=== PATIENT | male | born 1975 | race Hispanic/Latino ===

== ENCOUNTER 2017-07-08 22:52 | Emergency (ER) | payer SELFPAY ==
[2017-07-08] MEDS ORDERED: Mag-Al 1200 mg/1200 mg/30 ML UDCUP ONE (23:35)
[2017-07-08] MEDS ORDERED: Famotidine 20 MG TAB ONE (23:35)
[2017-07-08] MEDS ORDERED: Lidocaine Viscous Sol 2% 15 ml UD Cup ONE (23:35)
[2017-07-08 23:57] LABS: #Eosinphils 0.1 thou/uL (0.0-0.7); #Lymphocytes 1.1 thou/uL (1.20-3.40); #Monocytes 0.5 thou/uL (0.11-0.59); #Neutrophils 2.3 thou/uL (1.40-6.50); %Basophils 0.4 % (0.0-1.0); %Eosinophils 1.6 % (0.0-10.0); %Lymphocytes 27.5 % (21.0-51.0); %Monocytes 12.1 % (0.0-10.0); Hematocrit 46.3 % (42.0-52.0); Mean Platelet Volume 7.5 fL (7.4-10.4); Red Blood Cell (RBC) Count 4.98 mill/uL (4.70-6.10); White Blood Cell (WBC) Count 3.9 thou/uL (4.8-10.8)
[2017-07-09 00:09] LABS: ALT (SGPT) 73 U/L (8-55); AST (SGOT) 46 U/L (5-34); Alkaline Phosphatase 120 U/L (40-150); Anion Gap 15 mmol/L (10-20); BUN (Urea Nitrogen) 5 mg/dL (8.9-20.6); Bilirubin, Total 0.6 mg/dL (0.2-1.2); Calc. Creatinine Clearance 0 mL/min (70-130); Calcium 9.6 mg/dL (7.8-10.44); Carbon Dioxide 25 mmol/L (22-29); Chloride 100 mmol/L (98-107); Estimated GFR-MDRD Greater than 90; Globulin 3.6 g/dL (2.4-3.5); Magnesium 2.2 mg/dL (1.6-2.6)
[2017-07-09 00:10] LABS: Troponin I Less than 0.010 ng/mL (< 0.028)
--- NOTE | 2017-07-09 07:58 | RAD ---
PORTABLE CHEST: Date: 07/08/17 HISTORY: Chest pain. FINDINGS: Lung nuno are clear of infiltrate. No evidence of vascular congestion. Heart and mediastinum unrem arkable. Calcified granuloma in the right lower lung field is unchanged. IMPRESSION: No acute findings. POS: [facility]
== END 2017-07-09 00:33 | disposition home or self-care (01) ==
LOC: ERS 22:52
DX: K29.20 Alcoholic gastritis without bleeding (principal)
CPT/HCPCS: 71010; 80053; 82553; 83690; 83735; 84484; 85025; 93005; 96360

== ENCOUNTER 2018-01-19 12:11 | Observation (INO) | payer SELFPAY ==
[2018-01-19 12:48] LABS: #Lymphocytes 0.8 thou/uL (1.20-3.40); #Monocytes 0.3 thou/uL (0.11-0.59); #Neutrophils 3.9 thou/uL (1.40-6.50); %Basophils 0.6 % (0.0-1.0); %Eosinophils 0.4 % (0.0-10.0); %Lymphocytes 15.2 % (21.0-51.0); %Monocytes 6.5 % (0.0-10.0); %Neutrophils 77.3 % (42.0-75.0); Hemoglobin 14.7 g/dL (14.0-18.0); Mean Corpuscular HGB CONC 35.9 g/dL (32.0-36.0); Mean Corpuscular Hemoglobin 31.7 pg (27.0-31.0); Mean Corpuscular Volume 88.6 fl (80.0-94.0); Mean Platelet Volume 6.7 fL (7.4-10.4); Platelet Count 327 thou/uL (130-400); RBC Distribution Width 11.3 % (11.5-14.5); Red Blood Cell (RBC) Count 4.62 mill/uL (4.70-6.10)
[2018-01-19] MEDS ORDERED: Pantoprazole 40 MG VIAL ONE (12:48)
[2018-01-19] MEDS ORDERED: Lidocaine Viscous Sol 2% 15 ml UD Cup ONE (12:48)
[2018-01-19] MEDS ORDERED: Mag-Al 1200 mg/1200 mg/30 ML UDCUP ONE (12:48)
[2018-01-19] MEDS ORDERED: Ondansetron ODT 4 MG TAB ONE (12:51)
[2018-01-19 13:42] LABS: ALT (SGPT) 46 U/L (8-55); AST (SGOT) 30 U/L (5-34); Albumin 4.6 g/dL (3.5-5.0); Alkaline Phosphatase 102 U/L (40-150); Anion Gap 16 mmol/L (10-20); BUN (Urea Nitrogen) 5 mg/dL (8.9-20.6); Bilirubin, Total 0.8 mg/dL (0.2-1.2); Calc. Creatinine Clearance 0 mL/min (70-130); Calcium 8.4 mg/dL (7.8-10.44); Carbon Dioxide 23 mmol/L (22-29); Chloride 90 mmol/L (98-107); Estimated GFR-MDRD Greater than 90; Globulin 2.9 g/dL (2.4-3.5); Glucose 128 mg/dL (70-105); Lipase 16 U/L (8-78); Protein, Total 7.5 g/dL (6.0-8.3); Sodium 126 mmol/L (136-145)
[2018-01-19 13:46] LABS: Troponin I Less than 0.010 ng/mL (< 0.028)
[2018-01-19 13:52] LABS: CKMB 7.2 ng/mL (0-6.6); Potassium 2.8 mmol/L (3.5-5.1)
--- NOTE | 2018-01-19 14:34 | ULT ---
RIGHT UPPER QUADRANT ULTRASOUND: 01/19/2018 HISTORY: Right upper quadrant abdominal pain. Epigastric pain. FINDINGS: Limited visualized portions of the pancreas, the liver, visualized portions of the IVC, the gallbladd er, and the right kidney demonstrate a normal sonographic appearance. The right kidney measures 10 c m in length. The common duct measures 0.3 cm in diameter, which is within normal limits. IMPRESSION: Normal right upper quadrant ultrasound examination. No gallbladder calculi are seen, and the common duct is normal in caliber. POS: [facility]
--- NOTE | 2018-01-19 14:41 | RAD ---
PORTABLE AP CHEST XRAY: GERARD: 01/19/18. HISTORY: Epigastric abdominal pain and chest pain. COMPARISON: 11/08/16. FINDINGS: Cardiac silhouette and pulmonary vasculature are within normal limits. Calcified granuloma in the ri ght mid lung zone is again present. Lungs are otherwise clear. There has been no interval change fr om the prior study. IMPRESSION: No acute cardiopulmonary process. POS: [facility]
[2018-01-19] MEDS ORDERED: Potassium Chloride 20 MEQ TAB ONE (15:38)
[2018-01-19 16:01] LABS: Troponin I Less than 0.010 ng/mL (< 0.028)
[2018-01-19 17:15] LABS: Acetaminophen Less than 6.0 mcg/mL (10.0-30.0); Alcohol Less than 10 mg/dL (Less than 10); Salicylate Less than 8.0 mg/dL (15.0-30.0)
[2018-01-19] MEDS ORDERED: Acetaminophen 325 MG TAB PO PRN (18:37)
[2018-01-19] MEDS ORDERED: Ondansetron ODT 4 MG TAB PO PRN (18:37)
[2018-01-19] MEDS ORDERED: Senokot 8.6 MG TAB PO PRN (18:37)
[2018-01-19] MEDS ORDERED: Ondansetron HCl/PF 4 MG/2 ML Vial IVP PRN (18:37)
[2018-01-19] MEDS ORDERED: Acetaminophen 650 MG Suppository PR PRN (18:37)
[2018-01-19] MEDS ORDERED: Bisacodyl 5 MG TAB PO PRN (18:37)
[2018-01-19] MEDS ORDERED: Potassium Chloride 40 MEQ in Premix Bag 1 BAG IVPB SCH (18:45)
[2018-01-19] MEDS ORDERED: Multivitamins, Adult 10 ML, Folic Acid 1 MG, Thiamine HCl 100 MG in Dextrose 5 %-0.45 %... IV SCH (18:45)
[2018-01-19] MEDS ORDERED: Sodium Chloride 0.9% 1,000 ML IV SCH ×2 (18:45)
[2018-01-19] MEDS ORDERED: Diazepam 5 MG TAB PO PRN (18:51)
[2018-01-19] MEDS ORDERED: Potassium Chloride 40 MEQ in Sodium Chloride 0.9% 250 ML 250 ML IVPB SCH (19:00)
[2018-01-19] MEDS ORDERED: Diazepam 5 MG TAB PO SCH (19:00)
[2018-01-19 20:22] LABS: Troponin I Less than 0.010 ng/mL (< 0.028)
[2018-01-19 20:54] VITALS: BMI 39.6
--- NOTE | 2018-01-19 22:29 | HP ---
PRIMARY CARE PHYSICIAN: James aldana. CHIEF COMPLAINT: Abdominal pain. HISTORY OF PRESENT ILLNESS: This is a 42-year-old male with a known history of alcohol and cocaine abuse. He presented with a 1-day history of epigastric burning pain, radiating up into his c hest, pain happen after he drinks his typical 4 beers this morning. He took some ranitidine without improvement, so he came into the emergency room. In the ER, the patient was noted to have hyponatrem ia and hypokalemia. He was also dizzy upon standing, so [facility] The patient also does report that he threw up about four time this morning. This is not terribl y unusual for him in the mornings. No vomiting of blood. No other significant complaints. PAST MEDICAL HISTORY: Hypertension. PAST SURGICAL HISTORY: None. PSYCHIATRIC HISTORY: None. SOCIAL HISTORY: The patient denies tobacco use. He drinks about 4 beers and a couple of bottles of tequila per day, has done this for the last 15 years. He reports a history of cocaine use, last time was yesterday evening. FAMILY HISTORY: No significant family history of heart disease or other medical problems. ALLERGIES: No known drug allergies. MEDICATIONS: 1. Ranitidine 300 mg daily. 2. Lisinopril 5 mg daily, however, he does not take this regularly because he is worried that it mercedez ht interact with his drinking and cocaine use. REVIEW OF SYSTEMS: Constitutional: No fevers, no chills. Eyes: No double vision or blurred vision. ENT: No congestion, drainage or sore throat. Cardiovascular: See HPI. No palpitations or racing heart. Pulmonary: No coughing, wheezing or shortness of breath. Gastrointestinal: See HPI. No diarrhea or constipation. Genitourinary: No dysuria or hematuria. Musculoskeletal: He has some aches in his bilateral thighs, otherwise no other musculoskeletal compl aints. Skin: No rashes or lesions noted. Neurologic: No numbness, tingling or focal weakness. PHYSICAL EXAMINATION: VITAL SIGNS: Blood pressure 121/84, pulse 77, respirations 16, O2 sat 97% on room air, temperature 9 7.8. GENERAL: This is a well-developed male, in no apparent distress. HEENT: Pupils equal, round, and reactive to light. Extraocular movements intact. Oropharynx clear without lesions, erythema or exudate. NECK: Supple, no lymphadenopathy, no thyroid nodules. NEUROLOGIC: No JVD. HEART: Regular rate and rhythm. No murmurs, rubs or gallops. LUNGS: Clear to auscultation bilaterally. No wheezes, crackles or rhonchi. ABDOMEN: Soft, diffuse mild tenderness to palpation, a little bit worse in the midepigastric region. No masses. No guarding or rebound tenderness. No hepatosplenomegaly. Normoactive bowel sounds. EXTREMITIES: No clubbing, cyanosis or edema. SKIN: No rashes or other lesions noted. NEUROLOGIC: He has intact strength in all extremities. Intact reflexes in all extremities. No faci al droop. LABORATORY DATA: CBC grossly within normal limits. Complete metabolic panel was notable for sodium of 126, potassium of 2.8, chloride 90, BUN of 5, and a glucose of 128. The rest is normal. His CK-M B initially was 7.2. Troponin has been negative x2. Serum toxicology screen shows a negative salicy late, negative acetaminophen, negative alcohol in the blood. IMAGING: I did review the chest x-ray done in the emergency room along with the radiologist's report shows normal heart size, no infiltrates, no acute cardiopulmonary process. Abdominal ultrasound rep orted normal in the right upper quadrant. No gallbladder calculi seen. Common duct, normal in calib er. EKG done in the emergency room shows a normal sinus rhythm at 88 beats per minute, does have an incomplete right bundle-branch block, but no ST segment changes or T-wave abnormalities. ASSESSMENT: 1. Abdominal pain. This is likely gastritis related to patient's alcohol abuse. He is at high risk for heart disease as well. Given his cocaine use; however, troponins are negative thus far. He had no EKG changes. I will start patient on Protonix daily. We will also give him Zofran as needed for nausea and will trend his cardiac markers to make sure that they did not go up. We will also put regina espinoza on telemetry overnight. 2. Hyponatremia, likely related to alcohol abuse. We will start patient on banana bag with normal s donn in it running in 100 overnight. We will encourage good diet and will recheck in the morning. 3. Hypokalemia. The patient was given a dose of potassium chloride orally in the emergency room. W e will go ahead and run an IV 40 mEq bag as well overnight and then we will start him on twice a day potassium tomorrow. We will recheck the level in the morning. Also, check a magnesium level to make sure he is not low in magnesium also. 4. Alcohol abuse. Th patient is a heavy alcohol drinker. We will put him on ASE protocol as he genoveva l likely need treatment overnight. 5. Deep venous thrombosis prophylaxis. The patient is on Lovenox and sequential compression devices .
[2018-01-19 22:42] LABS: Troponin I Less than 0.010 ng/mL (< 0.028)
[2018-01-20] MEDS ORDERED: Diazepam 5 MG TAB PO PRN (04:00)
[2018-01-20 04:30] LABS: #Eosinphils 0.1 thou/uL (0.0-0.7); #Lymphocytes 1.1 thou/uL (1.20-3.40); #Monocytes 0.4 thou/uL (0.11-0.59); #Neutrophils 2.1 thou/uL (1.40-6.50); %Basophils 0.4 % (0.0-1.0); %Eosinophils 2.8 % (0.0-10.0); %Lymphocytes 29.3 % (21.0-51.0); %Monocytes 11.4 % (0.0-10.0); %Neutrophils 56.1 % (42.0-75.0); Hemoglobin 14.5 g/dL (14.0-18.0); Mean Corpuscular HGB CONC 34.3 g/dL (32.0-36.0); Mean Corpuscular Hemoglobin 31.7 pg (27.0-31.0); Mean Corpuscular Volume 92.3 fl (80.0-94.0); Mean Platelet Volume 7.1 fL (7.4-10.4); Platelet Count 305 thou/uL (130-400); RBC Distribution Width 11.8 % (11.5-14.5); Red Blood Cell (RBC) Count 4.59 mill/uL (4.70-6.10); White Blood Cell (WBC) Count 3.7 thou/uL (4.8-10.8)
[2018-01-20 04:48] LABS: Anion Gap 9 mmol/L (10-20); BUN (Urea Nitrogen) 8 mg/dL (8.9-20.6); Calc. Creatinine Clearance 104 mL/min (70-130); Calcium 8.5 mg/dL (7.8-10.44); Carbon Dioxide 22 mmol/L (22-29); Chloride 109 mmol/L (98-107); Estimated GFR-MDRD Greater than 90; Glucose 103 mg/dL (70-105); Sodium 136 mmol/L (136-145)
[2018-01-20] MEDS ORDERED: Potassium Chloride 20 MEQ TAB PO SCH (08:00)
[2018-01-20] MEDS ORDERED: Enoxaparin Sodium 40 MG/0.4 ML SYRINGE SC SCH (09:00)
[2018-01-20] MEDS ORDERED: Magnesium Oxide 400 MG TAB PO SCH (09:00)
[2018-01-20 11:57] VITALS: BP 128/65; TEMP 98.1
--- NOTE | 2018-01-20 15:26 | DIS ---
DATE OF ADMISSION: 01/19/2018 DATE OF DISCHARGE: 01/20/2018 DISCHARGE DIAGNOSES: 1. Acute gastritis secondary to alcohol abuse. 2. Alcohol abuse. 3. Hyponatremia, improved. 4. Hypokalemia, resolved. CONSULTATIONS: None. PERTINENT LABORATORY DATA AND X-RAY FINDINGS: Sodium ranged between 126-136. Potassium ranged betwe en 2.8-4.0. LFTs within normal limits. Lipase 16. Troponin I negative x4. CBC showed a hemoglobin ranging between 14.5-14.7. Urine drug screen showed plasma alcohol level less than 10. Abdominal u ltrasound dated 01/19/2018 showed no acute intra-abdominal process. Portable chest x-ray dated 01/19 showed no acute cardiopulmonary process. HOSPITAL COURSE: The patient was observed after presenting with abdominal pain in the context of kno wn alcohol abuse. The patient was placed on Protonix and given IV fluids and monitored clinically. The patient was also noted with hyponatremia in the context of alcohol abuse, treated with normal santos ine and banana bag. Patient was also given antiemetics with IV Zofran with overall resolution of his symptoms. Serial monitoring of the sodium showed improving values by the time of discharge as state d previously. The patient also received potassium supplementation due to mild hypokalemia. The edgar ent overall remained clinically stable on ASE protocol. No evidence of alcohol withdrawal noted duri ng the hospital course. Telemetry monitoring showed sinus mechanism without evidence of acute arrhyt hmia and patient remained clinically stable overall. The patient was tolerating regular oral intake by the time of discharge and clinically stable. I have examined the patient and discussed findings w ith the patient at the time of discharge at which point patient verbalizes understanding and agreemen t for discharge on 01/20/2018. DISCHARGE MEDICATIONS: None. FOLLOWUP: The patient will be given information with local [facility] in the [facility] area on discharge. CONDITION ON DISCHARGE: Stable. ACTIVITY: Ad antelmo. DIET: Regular. CODE STATUS: FULL. DISPOSITION: Home 01/20/2018.
== END 2018-01-20 14:03 | disposition home or self-care (01) ==
LOC: ERS 12:11 → 2SW 16:53
PROVIDERS: ADMIT Emergency Medicine; ATTEND Emergency Medicine
DX: F10.188 Alcohol abuse with other alcohol-induced disorder (principal); K29.00 Acute gastritis without bleeding; E87.1 Hypo-osmolality and hyponatremia; E87.6 Hypokalemia; I10 Essential (primary) hypertension; F14.10 Cocaine abuse, uncomplicated; Z79.899 Other long term (current) drug therapy; Z91.14 Patient's other noncompliance with medication regimen
CPT/HCPCS: 36415; 71045; 76705; 80048; 80053; 80307; 82553; 83690; 83735; 84484; 85025; 93005; 96361; 96365; 96366; 96372; 96374; 96375; C9113; G0378; J1650; J3411; J3475; J3480; J7042; J7050; Q0162

== ENCOUNTER 2018-03-03 18:44 | Emergency (ER) | payer SELFPAY ==
[2018-03-03 19:28] LABS: #Eosinphils 0.2 thou/uL (0.0-0.7); #Lymphocytes 1.1 thou/uL (1.20-3.40); #Monocytes 0.3 thou/uL (0.11-0.59); #Neutrophils 2.5 thou/uL (1.40-6.50); %Basophils 1.1 % (0.0-1.0); %Lymphocytes 27.4 % (21.0-51.0); %Monocytes 6.1 % (0.0-10.0); %Neutrophils 61.5 % (42.0-75.0); Mean Corpuscular HGB CONC 35.7 g/dL (32.0-36.0); Mean Corpuscular Hemoglobin 32.4 pg (27.0-31.0); Mean Corpuscular Volume 90.7 fL (78.0-98.0); Mean Platelet Volume 6.9 fL (7.4-10.4); Platelet Count 326 thou/uL (130-400); RBC Distribution Width 11.7 % (11.5-14.5); Red Blood Cell (RBC) Count 4.93 mill/uL (4.70-6.10); White Blood Cell (WBC) Count 4.1 thou/uL (4.8-10.8)
[2018-03-03 19:41] LABS: Albumin 4.6 g/dL (3.5-5.0); Calcium 9.3 mg/dL (7.8-10.44); Chloride 98 mmol/L (98-107); Potassium 3.3 mmol/L (3.5-5.1); Sodium 137 mmol/L (136-145)
[2018-03-03 19:42] LABS: Globulin 3.3 g/dL (2.4-3.5); Glucose 113 mg/dL (70-105); Protein, Total 7.9 g/dL (6.0-8.3)
[2018-03-03 19:44] LABS: Anion Gap 16 mmol/L (10-20); Bilirubin, Total 0.4 mg/dL (0.2-1.2); Carbon Dioxide 26 mmol/L (22-29)
[2018-03-03 19:45] LABS: Alkaline Phosphatase 109 U/L (40-150); Calc. Creatinine Clearance 0 mL/min (70-130); Estimated GFR-MDRD Greater than 90
[2018-03-03 19:46] LABS: BUN (Urea Nitrogen) 4 mg/dL (8.9-20.6)
[2018-03-03 19:47] LABS: AST (SGOT) 24 U/L (5-34)
[2018-03-03 19:48] LABS: ALT (SGPT) 31 U/L (8-55)
[2018-03-03 19:53] LABS: CKMB 2.1 ng/mL (0-6.6); Troponin I Less than 0.010 ng/mL (< 0.028)
[2018-03-03 19:54] LABS: CK (CPK) 129 U/L (30-200)
[2018-03-03] MEDS ORDERED: Mag-Al 1200 mg/1200 mg/30 ML UDCUP ONE (19:58)
[2018-03-03] MEDS ORDERED: Lidocaine Viscous Sol 2% 15 ml UD Cup ONE (19:58)
[2018-03-03] MEDS ORDERED: traMADol HCl 50 MG TAB ONE (21:54)
== END 2018-03-03 22:22 | disposition home or self-care (01) ==
LOC: ERS 18:44
DX: K29.70 Gastritis, unspecified, without bleeding (principal)
CPT/HCPCS: 36415; 80053; 82550; 82553; 84484; 85025; 93005

== ENCOUNTER 2018-06-25 23:10 | Emergency (ER) | payer SELFPAY ==
[2018-06-26] MEDS ORDERED: Ondansetron HCl/PF 4 MG/2 ML Vial ONE (00:11)
[2018-06-26] MEDS ORDERED: Mag-Al 1200 mg/1200 mg/30 ML UDCUP ONE (00:11)
[2018-06-26] MEDS ORDERED: Lidocaine Viscous Sol 2% 15 ml UD Cup ONE (00:11)
[2018-06-26 00:27] LABS: #Eosinphils 0.2 thou/uL (0.0-0.7); #Lymphocytes 1.1 thou/uL (1.20-3.40); #Monocytes 0.4 thou/uL (0.11-0.59); #Neutrophils 2.1 thou/uL (1.40-6.50); %Basophils 0.9 % (0.0-1.0); %Eosinophils 5.4 % (0.0-10.0); %Lymphocytes 30.1 % (21.0-51.0); %Monocytes 9.6 % (0.0-10.0); Mean Corpuscular HGB CONC 34.2 g/dL (32.0-36.0); Mean Corpuscular Hemoglobin 30.7 pg (27.0-31.0); Mean Corpuscular Volume 89.9 fL (78.0-98.0); Platelet Count 320 thou/uL (130-400); RBC Distribution Width 11.6 % (11.5-14.5); Red Blood Cell (RBC) Count 4.87 mill/uL (4.70-6.10); White Blood Cell (WBC) Count 3.8 thou/uL (4.8-10.8)
[2018-06-26 00:51] LABS: ALT (SGPT) 38 U/L (8-55); AST (SGOT) 30 U/L (5-34); Albumin 4.3 g/dL (3.5-5.0); Alcohol 132 mg/dL (Less than 10); Alkaline Phosphatase 104 U/L (40-150); Anion Gap 15 mmol/L (10-20); BUN (Urea Nitrogen) 5 mg/dL (8.9-20.6); Bilirubin, Total 0.5 mg/dL (0.2-1.2); Calc. Creatinine Clearance 0 mL/min (70-130); Calcium 8.5 mg/dL (7.8-10.44); Carbon Dioxide 26 mmol/L (22-29); Chloride 97 mmol/L (98-107); Estimated GFR-MDRD Greater than 90; Globulin 3.2 g/dL (2.4-3.5); Glucose 102 mg/dL (70-105); Lipase 17 U/L (8-78); Potassium 3.1 mmol/L (3.5-5.1); Protein, Total 7.5 g/dL (6.0-8.3); Sodium 135 mmol/L (136-145)
--- NOTE | 2018-06-26 09:03 | RAD ---
UPRIGHT PORTABLE CHEST 1 VIEW: Date: 06/26/18 HISTORY: 43-year-old male with history of epigastric abdominal pain, with nausea and vomiting, and red blood i n diarrhea. COMPARISON: 01/19/18. FINDINGS: Heart size is normal. The lungs are clear. No confluent pneumonia, overt edema, or pleural effusion. IMPRESSION: No acute intrathoracic disease. Right-sided old granulomatous disease. Stable from prior study. POS: [facility]
== END 2018-06-26 01:46 | disposition home or self-care (01) ==
LOC: ERS 23:10
DX: K29.20 Alcoholic gastritis without bleeding (principal); Z79.899 Other long term (current) drug therapy; Y90.6 Blood alcohol level of 120-199 mg/100 ml
CPT/HCPCS: 36415; 71045; 80053; 80307; 83690; 85025; 93005; 96361; 96374; J2405

== ENCOUNTER 2018-08-15 06:24 | Emergency (ER) | payer SELFPAY ==
[2018-08-15 07:05] LABS: #Eosinphils 0.1 thou/uL (0.0-0.7); #Lymphocytes 0.9 thou/uL (1.20-3.40); #Monocytes 0.7 thou/uL (0.11-0.59); #Neutrophils 7.1 thou/uL (1.40-6.50); %Basophils 0.5 % (0.0-1.0); %Eosinophils 1.6 % (0.0-10.0); %Monocytes 7.9 % (0.0-10.0); Mean Corpuscular HGB CONC 34.9 g/dL (32.0-36.0); Mean Corpuscular Hemoglobin 31.3 pg (27.0-31.0); Mean Corpuscular Volume 89.8 fL (78.0-98.0); Mean Platelet Volume 7.4 fL (7.4-10.4); Platelet Count 335 thou/uL (130-400); RBC Distribution Width 11.6 % (11.5-14.5); Red Blood Cell (RBC) Count 4.79 mill/uL (4.70-6.10); White Blood Cell (WBC) Count 8.8 thou/uL (4.8-10.8)
[2018-08-15 07:30] LABS: ALT (SGPT) 40 U/L (8-55); AST (SGOT) 32 U/L (5-34); Albumin 4.6 g/dL (3.5-5.0); Alkaline Phosphatase 100 U/L (40-150); Anion Gap 16 mmol/L (10-20); BUN (Urea Nitrogen) 6 mg/dL (8.9-20.6); Bilirubin, Total 0.5 mg/dL (0.2-1.2); CK (CPK) 184 U/L (30-200); Calc. Creatinine Clearance 0 mL/min (70-130); Calcium 10.3 mg/dL (7.8-10.44); Carbon Dioxide 25 mmol/L (22-29); Chloride 95 mmol/L (98-107); Estimated GFR-MDRD Greater than 90; Globulin 3.3 g/dL (2.4-3.5); Glucose 118 mg/dL (70-105); Potassium 3.4 mmol/L (3.5-5.1); Protein, Total 7.9 g/dL (6.0-8.3); Sodium 133 mmol/L (136-145)
[2018-08-15 07:33] LABS: CKMB 3.7 ng/mL (0-6.6); Troponin I Less than 0.010 ng/mL (< 0.028)
[2018-08-15] MEDS ORDERED: Ondansetron PF 4 MG/2 ML Vial ONE (08:54)
[2018-08-15] MEDS ORDERED: Lidocaine Viscous Sol 2% 15 ml UD Cup ONE (08:54)
[2018-08-15] MEDS ORDERED: Pantoprazole 40 MG VIAL ONE (08:54)
[2018-08-15] MEDS ORDERED: Mag-Al 1200 mg/1200 mg/30 ML UDCUP ONE (08:54)
[2018-08-15 09:38] LABS: Bilirubin Negative (Negative); Blood, Urine Small (Negative); Clarity CLEAR (Clear); Glucose, Urine (Dipstick) Negative (Negative); Leukocyte Negative (Negative); Nitrite Negative (Negative); Protein, Urine (Dipstick) Negative (Neg-Trace); Specific Gravity, Urine 1.006 (1.002-1.036); Urobilinogen 0.2 mg/dL (0.2-1.0)
[2018-08-15 09:42] LABS: Bacteria/HPF None Seen HPF (None Seen); Hyaline Casts/LPF 0-3 HYALINE CAST LPF (0-3 Hyaline); Squamous Epithelial None Seen HPF (0-3); WBC/HPF None Seen HPF (0-3)
== END 2018-08-15 10:36 | disposition home or self-care (01) ==
LOC: ERS 06:24
DX: K29.70 Gastritis, unspecified, without bleeding (principal); Z71.6 Tobacco abuse counseling; F41.9 Anxiety disorder, unspecified; F17.210 Nicotine dependence, cigarettes, uncomplicated; I10 Essential (primary) hypertension; Z79.899 Other long term (current) drug therapy
CPT/HCPCS: 36415; 80053; 81003; 81015; 82553; 83690; 84484; 85025; 93005; 96361; 96374; 96375; 99406; C9113; J2405

== ENCOUNTER 2020-03-06 02:05 | Emergency (ER) | payer OTHER, SELFPAY ==
[2020-03-06] MEDS ORDERED: Ibuprofen 200 MG TAB ONE (03:04)
== END 2020-03-06 03:47 | disposition home or self-care (01) ==
LOC: ERS 02:05
DX: U07.1 COVID-19 (principal); I10 Essential (primary) hypertension; F41.9 Anxiety disorder, unspecified; F17.210 Nicotine dependence, cigarettes, uncomplicated
CPT/HCPCS: 87635; 99284; U0003

== ENCOUNTER 2020-04-02 12:28 | Emergency (ER) | payer OTHER, SELFPAY ==
[2020-04-03 14:36] LABS: SARS-CoV-2 MS2 Positive; SARS-CoV-2 N Gene Positive; SARS-CoV-2 S Gene Positive; SARS-CoV-2 orf1ab Positive
== END 2020-04-02 13:50 | disposition home or self-care (01) ==
LOC: ERS 12:28
DX: U07.1 COVID-19 (principal); I10 Essential (primary) hypertension; F41.9 Anxiety disorder, unspecified; F17.210 Nicotine dependence, cigarettes, uncomplicated
CPT/HCPCS: 87635; 99283; U0003